=== PATIENT | male | born 1980 | race Caucasian/White ===

== ENCOUNTER 2019-05-12 02:19 | Emergency (ER) | payer OTHER ==
[2019-05-12 02:29] VITALS: BP 162/101
[2019-05-12] MEDS ORDERED: LOR5/325 PO (02:46)
[2019-05-12] MEDS ORDERED: CLIN300C99 PO (02:46)
--- NOTE | 2019-05-12 02:46 | ER Report ---
History and Physical Time Seen By MD: 02:40 Hx. of Stated Complaint: PATIENT REPORTS RIGHT SIDED DENTAL PAIN WITH FACIAL EDEMA HPI/ROS CHIEF COMPLAINT: Right upper dental pain, facial swelling HISTORY OF PRESENT ILLNESS: 38-year-old male presents with 2 days of right upper tooth pain. He has the tooth is fractured off. He has numerous teeth that are missing. Patient notes that his right face swelled up tonight. He had an ice pack on it. He notes 7/10 throbbing pain aggravated by chewing. Patient also difficulty swallowing or breathing. He notes no swelling in his neck. REVIEW OF SYSTEMS: Respiratory: No cough, no dyspnea. Cardiovascular: No chest pain, no palpitations. Gastrointestinal: No vomiting, no abdominal pain. Musculoskeletal: No back pain. Allergies: Coded Allergies: No Known Drug Allergies (Unverified , 05/12/19) Home Meds Active Scripts Hydrocodone Bit/Acetaminophen (HYDROCODON-ACETAMINOPHEN 5-325) 1 Each Tablet, 1 EACH PO Q4-6H PRN for PAIN, #10 TAKE ONE TABLET BY MOUTH EVERY 4-6 HOURS NEEDED FOR PAIN Prov:ROBBIE ERICKSON DO 05/12/19 Clindamycin Hcl (CLINDAMYCIN HCL) 300 Mg Capsule, 300 MG PO TID for tooth abscess, #20 CAPSULE TAKE 1 CAPSULE EVERY SIX HOURS Prov:ROBBIE ERICKSON DO 05/12/19 Constitutional Vital Sign - Last 24 Hours 05/12/19 02:29 Temp 98.6 Pulse 65 Resp 14 B/P (MAP) 162/101 Pulse Ox 93 O2 Delivery Room Air Physical Exam General Appearance: The patient is alert, has no immediate need for airway protection and no current signs of toxicity. Vital signs stable, afebrile, pulse ox normal, there is gross facial swelling to the right maxilla HEENT: Pupils equal and round no injection. TMs normal, TMJs nontender, exami nation of the oropharynx reveals a tooth at position #3 is half missing. There is a large caries involving. Tooth at position #2 and #1 or absent Respiratory: Chest is non tender, lungs are clear to auscultation. Cardiac: regular rate and rhythm Musculoskeletal: Neck: Neck is supple and non tender. No lymphadenopathy, no induration of neck tissues Extremities have full range of motion and are non tender. Skin: No rashes or lesions. DIFFERENTIAL DIAGNOSIS: After history and physical exam differential diagnosis was considered for dental abscess, fractured tooth, periodontal disease, sinus infection Medical Decision Making ED Course/Re-evaluation ED Course Patient's admitted to an examination room. H&P was done. The differential diagnoses was considered. On clinical examination. Patient has facial swelling and he has a fractured tooth for large caries.. He appears to have a tooth abscess. He'll be treated with an ND, sensory and her milligrams 3 times a day. He'll be given a limited supply of Lortab for temporary pain relief. He is advised to continue ibuprofen 600 mg 3 times daily. Patient advised to follow- up with a dentist as soon as possible. Decision to Disposition Date: May 12, 2019 Decision to Disposition Time: 02:43 Depart Departure Latest Vital Signs Vital Signs Date Time Temp Pulse Resp B/P (MAP) Pulse Ox O2 Delivery O2 Flow Rate FiO2 05/12/19 02:29 98.6 65 14 162/101 93 Room Air Impression: Primary Impression: Dental abscess Additional Impression: Facial swelling Condition: Improved Disposition: HOME OR SELF-CARE New Scripts Hydrocodone Bit/Acetaminophen (HYDROCODON-ACETAMINOPHEN 5-325) 1 Each Tablet 1 EACH PO Q4-6H PRN for PAIN, #10 TAKE ONE TABLET BY MOUTH EVERY 4-6 HOURS NEEDED FOR PAIN Prov: ROBBIE ERICKSON DO 05/12/19 Clindamycin Hcl (CLINDAMYCIN HCL) 300 Mg Capsule 300 MG PO TID for tooth abscess, #20 CAPSULE TAKE 1 CAPSULE EVERY SIX HOURS Prov: ROBBIE ERICKSON DO 05/12/19 Patient Instructions: Dental Abscess (ED) Additional Instructions: Take ibuprofen 200 mg 3-4 tablets 3 times a day with food Apply Warm compresses to your face Follow-up with a dentist as soon as possible Problem Qualifiers ROBBIE ERICKSON DO May 12, 2019 02:46
[2019-05-12] MEDS ORDERED: ACET/HYDROC 5/325MG TH ER ONLY 2 TAB/BOTTLE PO ONE (02:50)
[2019-05-12] MEDS ORDERED: CLINDAMYCIN 150 MG CAP PO ONE (02:50)
== END 2019-05-12 02:56 | disposition home or self-care (01) ==
LOC: ER 02:50
DX: K04.7 Periapical abscess without sinus (principal); M79.89 Other specified soft tissue disorders
CPT/HCPCS: 99283